=== PATIENT | female | born 1960 | race Caucasian/White ===

== ENCOUNTER 2017-11-18 18:07 | Emergency (ER) | payer OTHER ==
[2017-11-18 18:31] VITALS: BP 140/84
[2017-11-18] MEDS ORDERED: Polymyx/Trimethoprim OPTH* 10 ML BTL LEFT EYE ONE (18:48)
--- NOTE | 2017-11-18 19:27 | UC ---
Eye Complaint HPI - HPI Summary HPI Summary: 4 days of ;eft eye itching redness and increasing drainage--no contact no rash, no vision deficits or pain - History of Current Complaint Chief Complaint: UCEye Stated Complaint: LEFT EYE CONCERN Time Seen by Provider: 11/18/17 18:39 Hx Obtained From: Patient ?: No Onset/Duration: Sudden Onset, Lasting Days - 4 Timing: Constant Severity Initially: Mild Severity Currently: Moderate Location of Injury: Conjunctiva - left Aggravating Factor(s): Nothing Alleviating Factor(s): Nothing Associated Signs And Symptoms: Positive: Drainage (Clear), Drainage (Purulent) - Allergies/Home Medications Allergies/Adverse Reactions: Allergies Allergy/AdvReac Type Severity Reaction Status Date / Time No Known Allergies Allergy Verified 11/18/17 18:21 Home Medications: Home Medications Levothyroxine TAB* [Synthroid TAB*] 1 tab DAILY 11/18/17 [History Confirmed 11/29] Simvastatin 20 mg PO QPM 11/18/17 [History Confirmed 11/18/17] Vitamin E CAP* 1 cap DAILY 11/18/17 [History Confirmed 11/18/17] PMH/Surg Hx/FS Hx/Imm Hx Previously Healthy: No Endocrine History: Hypothyroidism, Dyslipidemia - Surgical History Surgical History: Yes Surgery Procedure, Year, and Place: RIGHT oophorectomy. 2x - Family History Known Family History: Positive: None - Social History Occupation: Employed Full-time Lives: Alone Alcohol Use: None Substance Use Type: None Smoking Status (MU): Never Smoked Tobacco Review of Systems Constitutional: Negative Skin: Negative Eyes: Drainage - left, Eye Redness - left ENT: Negative Respiratory: Negative Cardiovascular: Negative Gastrointestinal: Negative Genitourinary: Negative Motor: Negative Neurovascular: Negative Musculoskeletal: Negative Neurological: Negative Psychological: Negative Is Patient Immunocompromised?: No All Other Systems Reviewed And Are Negative: Yes Physical Exam Triage Information Reviewed: Yes Appearance: Well-Appearing, No Pain Distress, Well-Nourished Vital Signs: Initial Vital Signs Temp 98.3 F 11/18/17 18:22 Pulse 72 11/18/17 18:22 Resp 16 11/18/17 18:22 BP 140/84 11/18/17 18:22 Pulse Ox 97 11/18/17 18:22 Vital Signs Reviewed: Yes Eye Exam: Other Eyes: Positive: Conjunctiva Inflamed - left, Discharge - left ENT Exam: Normal ENT: Positive: Normal ENT inspection, Hearing grossly normal, TMs normal. Negative: Nasal congestion, Trismus, Muffled voice, Hoarse voice Dental Exam: Normal Neck exam: Normal Neck: Positive: Supple, Nontender Respiratory Exam: Normal Respiratory: Positive: Chest non-tender, No respiratory distress, No accessory muscle use Cardiovascular Exam: Normal Cardiovascular: Positive: RRR, Pulses Normal, Brisk Capillary Refill Musculoskeletal Exam: Normal Musculoskeletal: Positive: Strength Intact, ROM Intact, No Edema Neurological Exam: Normal Neurological: Positive: Alert, Muscle Tone Normal Psychological Exam: Normal Skin Exam: Normal Eye Complaint Course/Dx - Course Course Of Treatment: polytrim eye drops, warm compress follow with pcp - Differential Dx/Diagnosis Provider Diagnoses: os conjuctivitis, elevated blood pressure without dx hypertension Discharge - Sign-Out/Discharge Documenting (check all that apply): Discharge/Admit/Transfer - Discharge Plan Condition: Stable Disposition: HOME Patient Education Materials: How to Use Eye Drops (ED), Conjunctivitis (ED) Referrals: Obed Morris MD [Primary Care Provider] - If Needed - Billing Disposition and Condition Condition: STABLE Disposition: Home
== END 2017-11-18 18:59 | disposition home or self-care (01) ==
LOC: UCCORT 18:07
DX: H10.9 Unspecified conjunctivitis (principal); R03.0 Elevated blood-pressure reading, without diagnosis of hypertension; E03.9 Hypothyroidism, unspecified; E78.5 Hyperlipidemia, unspecified
CPT/HCPCS: 99212; G0463

== ENCOUNTER 2018-08-31 15:24 | Emergency (ER) | payer OTHER ==
[2018-08-31 15:42] VITALS: BP 161/84
[2018-08-31] MEDS ORDERED: Acetaminophen TAB* 325 MG PO ONE (16:06)
--- NOTE | 2018-08-31 16:06 | ED ---
Headache - HPI Summary HPI Summary: 58 yr old female with the complaint of posterior headache, and neck pain. ONset of symptoms over 6 weeks ago. She complains of pain worse with nothing. SHe feels like her eyes are heavy. She has pain in base of skull and it goes into both shoulders. Not worse with ROM. She denies falls or trauma. She denies fever or chills. She denies focal weakness, numbness. She feels her eyes are heavy and vision on right. The sister translates for this patient from Cypriot to Frisian and Frisian to [place]riot. - History Of Current Complaint Chief Complaint: UCGeneralIllness Stated Complaint: PAIN IN BACK OF NECK Time Seen by Provider: 08/31/18 15:46 - Allergies/Home Medications Allergies/Adverse Reactions: Allergies Allergy/AdvReac Type Severity Reaction Status Date / Time No Known Allergies Allergy Verified 08/31/18 15:42 PMH/Surg Hx/FS Hx/Imm Hx Endocrine/Hematology History: Reports: Hx Thyroid Disease - Surgical History Surgery Procedure, Year, and Place: RIGHT oophorectomy. 2x Infectious Disease History: No Infectious Disease History: Reports: Hx Shingles Denies: Traveled Outside the [place] in Last 30 Days - Family History Known Family History: Positive: None - Social History Alcohol Use: None Substance Use Type: Reports: None Smoking Status (MU): Never Smoked Tobacco Review of Systems Constitutional: Negative Musculoskeletal: Other - neck pain Positive: Headache All Other Systems Reviewed And Are Negative: Yes Physical Exam Triage Information Reviewed: Yes Vital Signs On Initial Exam: Initial Vitals Temp Pulse Resp BP Pulse Ox 97.8 F 64 16 161/84 100 08/31/18 15:37 08/31/18 15:37 08/31/18 15:37 08/31/18 15:37 08/31/18 15:37 Vital Signs Reviewed: Yes Appearance: Positive: Well-Appearing, No Pain Distress Skin: Positive: Warm, Skin Color Reflects Adequate Perfusion Head/Face: Positive: Normal Head/Face Inspection Eyes: Positive: EOMI ENT: Positive: TMs normal Neck: Positive: Supple, Nontender, Other: - ROM and palpation do not change the pain in her neck or head. Respiratory/Lung Sounds: Positive: Clear to Auscultation, Breath Sounds Present Cardiovascular: Positive: RRR. Negative: Murmur Abdomen Description: Negative: Distended Musculoskeletal: Positive: Normal, Strength/ROM Intact, Other Neurological: Positive: Sensory/Motor Intact, Alert, Oriented to Person Place, Time, CN Intact II-III, Normal Gait, Speech Normal Psychiatric: Positive: Normal - Artur Coma Scale Best Eye Response: 4 - Spontaneous Best Motor Response: 6 - Obeys Commands Best Verbal Response: 5 - Oriented Coma Scale Total: 15 Diagnostics - Vital Signs Vital Signs Temp Pulse Resp BP Pulse Ox 08/31/18 15:37 97.8 F 64 16 161/84 100 - Laboratory Lab Statement: Any lab studies that have been ordered have been reviewed, and results considered in the medical decision making process. Headache Course/Dx - Course Course Of Treatment: 58 yr old with posterior headache 6 weeks, and neck pain with feeling of eyes heavy, vision not quite right. Recommend go to the ER for full labs and further imaging. - Diagnoses Provider Diagnoses: Headache, Neck pain, Hypertension Discharge - Sign-Out/Discharge Documenting (check all that apply): Patient Departure All imaging exams completed and their final reports reviewed: No Studies - Discharge Plan Condition: Good Disposition: HOME-RECOMMEND TO ED Patient Education Materials: Acute Headache (ED), Hypertension (ED), Neck Pain (ED) Referrals: Mery Hernandez PA [Primary Care Provider] - 1 Day Additional Instructions: YOu need to go to the ER for further evaluation after leaving here for labs and imaging. DO not delay. - Billing Disposition and Condition Condition: GOOD Disposition: Home-Recommend to ED
== END 2018-08-31 16:15 | disposition home health service (06) ==
LOC: UCCORT 15:24
DX: I10 Essential (primary) hypertension (principal); M54.2 Cervicalgia; E07.9 Disorder of thyroid, unspecified
CPT/HCPCS: 99212; A9270-GY; G0463